=== PATIENT | female | born 1945 | race Asian ===

== ENCOUNTER 2017-09-12 06:35 | Emergency (ER) | payer MEDICARE ==
[2017-09-12] MEDS ORDERED: Sodium Chloride 0.9% 1,000 ML IV ONE (07:21)
--- NOTE | 2017-09-12 07:31 | ED Physician Chart ---
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 Is Septic Shock (SBP<90, OR Lactate>4 mmol\L) present?: No - <6hrs of presentation: Vital Signs: Vital Signs - 8 hr 09/12/17 06:35 Temp 98.2 F HR 68 RR 18 BP 113/47 O2 Sat % 97
[2017-09-12 07:46] LABS: % BASOPHILS 1.2 % (0.0-2.0); % EOSINOPHILS 2.6 % (0.0-5.0); % LYMPHOCYTES 28.3 % (20.0-50.0); % MONOCYTES 8.4 % (2.0-10.0); % NEUTROPHILS 59.5 % (40.0-80.0); BASOPHILE ABSOLUTE 0.1 Th/cumm (0-0.2); EOSINOPHILE ABSOLUTE 0.1 Th/cmm (0.1-0.4); HEMATOCRIT 37.6 % (41.0-60); HEMOGLOBIN 12.6 gm/dL (12-16); LYMPHOCYTE ABSOLUTE 1.4 Th/cmm (1.5-3.0); MEAN CELL VOLUME 99.1 fl (81-100); MEAN CORPUSCULAR HEMOGLOBIN 33.4 pg (27.0-31.0); MEAN CORPUSCULAR HGB CONC 33.7 pg (28.0-36.0); MEAN PLATELET VOLUME 7.2 fl; MONOCYTE ABSOLUTE 0.4 Th/cmm (0.3-1.0); NEUTROPHILE ABSOLUTE 2.8 Th/cmm (1.8-8.0); PLATELET COUNT 260 Th/cmm (150-400); RED BLOOD COUNT 3.79 Mil/cmm (3.80-5.20); RED CELL DISTRIBUTION WIDTH 12.6 % (11.5-20.0); WHITE BLOOD COUNT 4.8 Th/cmm (4.8-10.8)
[2017-09-12 08:02] LABS: ALBUMIN 4.6 gm/dL (3.7-5.3); ALKALINE PHOSPHATASE 36 U/L (34-104); ANION GAP 12.7 (7.0-16.0); BILIRUBIN,TOTAL 0.5 mg/dL (0.3-1.0); BUN - UREA NITROGEN 23 mg/dL (7-25); CALCIUM SERUM 10.2 mg/dL (8.6-10.3); CARBON DIOXIDE 25.4 mEq/L (21.0-31.0); CHLORIDE 105 mEq/L (98-107); CREATININE - SERUM 0.8 mg/dL (0.6-1.2); GLUCOSE 112 mg/dL (70-105); POTASSIUM SERUM 4.1 mEq/L (3.5-5.1); SGOT 40 U/L (13-39); SGPT/ALT 34 U/L (7-52); SODIUM SERUM 139 mEq/L (136-145); TOTAL PROTEIN,SERUM 6.9 gm/dL (6.0-8.3)
[2017-09-12 08:29] LABS: URINE BILIRUBIN NEGATIVE (NEGATIVE); URINE BLOOD NEGATIVE (NEGATIVE); URINE GLUCOSE (UA) NEGATIVE (NEGATIVE); URINE KETONE NEGATIVE (NEGATIVE); URINE LEUKOCYTE ESTERASE NEGATIVE (NEGATIVE); URINE NITRATE NEGATIVE (NEGATIVE); URINE PROTEIN NEGATIVE (NEGATIVE); URINE UROBILINOGEN 0.2 E.U./dL (0.2 - 1.0)
[2017-09-12 08:30] LABS: URINE MICROSCOPIC INDICATED? YES; URINE SOURCE CLEAN C
[2017-09-12 08:34] LABS: URINE CLARITY CLEAR (CLEAR); URINE COLOR LIGHT YELLOW; URINE EPITHELIAL CELLS OCCASIONAL /lpf (FEW); URINE RBC NONE SEEN /hpf (0-5); URINE WBC 0-2 /hpf (0-5)
[2017-09-12 08:35] LABS: URINE BACTERIA FEW /hpf (NONE SEEN); URINE HYALINE CAST 0-2 /lpf (0-2)
--- NOTE | 2017-09-12 09:08 | Diagnostic Imaging Report ---
Portable chest x-ray HISTORY: Shortness of breath The heart appears enlarged. No focal pulmonary processes. No hilar or mediastinal abnormalities. IMPRESSION: 1. No acute abnormalities 2. Cardiomegaly
--- NOTE | 2017-09-12 09:50 | Diagnostic Imaging Report ---
CT scan of the brain without contrast History: Dizziness, vertigo Total DLP equals 570 CTDI equals 34.7 Axial sections were obtained from the base of the skull to the vertex. There is a normal ventricular system size. No focal parenchymal lesions are seen. No evidence of any mass effect or shift of midline structures. No extra-axial masses or abnormal fluid collections. Impression: No acute abnormalities
== END 2017-09-12 10:50 | disposition home or self-care (01) ==
LOC: ER 06:35
DX: R42 Dizziness and giddiness (principal); R11.0 Nausea; I10 Essential (primary) hypertension
CPT/HCPCS: 99285; 71045; 70450; 84484; 36415; 85025; 81001; 82550; 82553; 80053; 87040 ×2; Q0162; J7030

== ENCOUNTER 2018-06-09 19:20 | Emergency (ER) | payer MEDICARE, OTHER ==
--- NOTE | 2018-06-09 19:34 | ED Physician Chart ---
ED Chief Complaint/HPI - Patient Information Date Seen:: 06/09/18 Time Seen:: 19:20 Chief Complaint:: right wrist, right hip, right knee pain History of Present Illness:: At 6:30 pm patient missed the chair and fell on her right side, breaking her fall with the palm of her right hand. Patient did not hit her head. No neck pain. Patient is right-hand dominant. Allergies:: Allergies Allergy/AdvReac Type Severity Reaction Status Date / Time No Known Allergies Allergy Verified 09/12/17 07:06 Vitals:: Vital Signs - 8 hr 06/09/18 19:23 Temp 98.6 F HR 67 RR 18 BP 117/70 O2 Sat % 99 Historian:: Patient Review:: Nurse's Note Reviewed ED Review of Systems - Review of Systems General/Constitutional: No fever, No chills Skin: No skin lesions Head: No headache Eyes: No loss of vision ENT: No earache Neck: No neck pain Cardio Vascular: No chest pain, No palpitations Pulmonary: No SOB GI: No nausea, No vomiting, No diarrhea G/U: No dysuria Musculoskeletal: Bone or joint pain Psychiatric: No prior psych history Hematopoietic: No lymphadenopathy Allergic/Immuno: No urticaria Neurological: No syncope ED Past Medical History - Past Medical History Past Medical History: HTN Family History: None Social History: Non Smoker, No Alcohol Surgical History: , other ( section) Psychiatricy History: None Family Medical History - Family Member Mother Living Status: Hx Family Hypertension: Yes ED Physical Exam - Physical Examination General/Constitutional: Awake, Well-developed, well-nourished, Alert, No distress Head: Atraumatic Eyes: Lids, conjuctiva normal, PERRL Skin: Nl inspection, No rash, No skin lesions, No ecchymosis ENMT: External ears, nose nl, TM canals nl, Nasal exam nl, Lips, teeth, gums nl , Oropharynx nl, Tonsils nl Neck: No nuchal rigidity Other Neck comments:: 85-90 forward flexion of neck Respiratory: Nl effort/Exclusion, Clear to Auscultation, No Wheeze/Rhonchi/Rales Cardio Vascular: RRR, No murmur, gallop, rubs GI: No tenderness/rebounding/guarding, No organomegaly Other Extremities comments:: Right wrist: tenderness of dorsum and distal to the ulnar styloid; Right hip: Flexion abduction external rotation causes mild lateral hip pain but no groin pain; right knee: full range of motion, collateral and cruciate ligaments stable , lateral tenderness Neuro/Psych: No focal deficits ED Labs/Radiology/EKG Results - Radiology Results Results: X-ray right wrist negative; x-ray right hip negative that did show scoliosis; right knee negative ED Assessment - Assessment General Assessment: A Colle's splint was placed on the right wrist with a three-inch Gómez wrap.. May return to light duty in 5 days. Needs recheck before returning to work. ED Septic Shock - . Is Septic Shock (SBP<90, OR Lactate>4 mmol\L) present?: No - <6hrs of presentation: Vital Signs: Vital Signs - 8 hr 06/09/18 19:23 Temp 98.6 F HR 67 RR 18 BP 117/70 O2 Sat % 99 ED Reassessment (Disposition) - Reassessment Reassessment Condition:: Unchanged - Diagnosis Diagnosis:: Sprain right wrist; contusion right hip; contusion right knee - Aftercare/Follow up Instructions Aftercare/Follow-Up Instructions:: Refer to Discharge Instructions - Patient Disposition Discharge/Transfer:: Home Condition at Disposition:: Stable, Unchanged
--- NOTE | 2018-06-10 08:21 | Diagnostic Imaging Report ---
Right hip (2 views) HISTORY: Pain, trauma No acute abnormalities. No fractures. Mild hypertrophic changes noted about the acetabulum and greater trochanter. Severe degenerative changes noted in the visualized lower lumbar spine. IMPRESSION: 1. No acute abnormalities 2. Degenerative changes
--- NOTE | 2018-06-10 08:22 | Diagnostic Imaging Report ---
Right knee (2 views) HISTORY: Pain, trauma No acute bony abnormality. No fractures. Joint spaces appear normal. IMPRESSION: No acute bony abnormalities
--- NOTE | 2018-06-10 08:23 | Diagnostic Imaging Report ---
Right wrist (2 views, left for comparison) HISTORY: Pain, trauma No acute bony abnormalities. No fractures. Narrowing and hypertrophic bony changes noted about the first carpal metacarpal joint region. IMPRESSION: 1. No acute abnormalities 2. Degenerative changes In the presence of recent trauma and persistent symptoms, a repeat radiograph in 5-7 days may be helpful for detection of a subtle or occult fracture.
== END 2018-06-09 20:15 | disposition home or self-care (01) ==
LOC: ER 19:20
DX: S63.501A Unspecified sprain of right wrist, initial encounter (principal); S70.01XA Contusion of right hip, initial encounter; S80.01XA Contusion of right knee, initial encounter; I10 Essential (primary) hypertension; Z98.890 Other specified postprocedural states; W07.XXXA Fall from chair, initial encounter; Y93.89 Activity, other specified; Y92.89 Other specified places as the place of occurrence of the external cause; Y99.8 Other external cause status
CPT/HCPCS: 73100-TC-RT; 73501; 73560-TC-RT; Z7502